=== PATIENT | female | born 1975 | race Caucasian/White ===

== ENCOUNTER 2018-04-05 07:14 | Day surgery (SDC) | payer BC, MEDICARE ==
[~2018-04-05] VITALS: Ht 170.2 cm; Wt 117.3 kg
[~2018-04-05 07:14] MED LIST: RINGERS SOLUTION,LACTATED 1,000 ML IV ONE
[2018-04-05] MEDS ORDERED: LIDOCAINE/PF 2% 5 ML VIAL IM ONE (07:15)
[2018-04-05] MEDS ORDERED: FentaNYL CITRATE-PF 100 MCG/2 ML VIAL IVP ONE (07:15)
[2018-04-05] MEDS ORDERED: ONDANSETRON HCL 4 MG/2 ML VIAL IVP ONE (07:15)
[2018-04-05] MEDS ORDERED: MIDAZOLAM HCL 2 MG/2 ML VIAL IVP ONE (07:15)
[2018-04-05] MEDS ORDERED: PROPOFOL 1% 20 ML VIAL IVP ONE (07:15)
[2018-04-05 08:03] LABS: GLUCOMETER DEV NAME(LOC) SDS 5; GLUCOSE,POINT OF CARE 147 MG/DL (70-110)
[2018-04-05] MEDS ORDERED: NORE1TAB32 PO (08:06)
[2018-04-05] MEDS ORDERED: BUPR-47 PO (08:06)
[2018-04-05] MEDS ORDERED: NORT25 PO (08:06)
[2018-04-05] MEDS ORDERED: OMEP20 PO (08:06)
[2018-04-05] MEDS ORDERED: VENL-67 PO (08:06)
[2018-04-05] MEDS ORDERED: LIDOCAINE/PF 1% 30 ML VIAL ONE (10:00)
[2018-04-05] MEDS ORDERED: BUPIVACAINE 0.25%/EPI 1:200,000/PF 10 ML VIAL ONE (10:07)
[2018-04-05] MEDS ORDERED: MEPERIDINE-PF 25 MG/ML VIAL IVP PRN (10:15)
[2018-04-05] MEDS ORDERED: FentaNYL CITRATE-PF 100 MCG/2 ML VIAL IVP PRN (10:15)
[2018-04-05] MEDS ORDERED: OXYGEN THERAPY IH SCH (20:00)
== END 2018-04-05 13:40 | disposition home or self-care (01) ==
LOC: SURGERY 07:14
PROVIDERS: ATTEND Obstetrics & Gynecology
DX: Z30.46 Encounter for surveillance of implantable subdermal contraceptive (principal); E66.9 Obesity, unspecified; F32.9 Major depressive disorder, single episode, unspecified; K21.9 Gastro-esophageal reflux disease without esophagitis; M19.90 Unspecified osteoarthritis, unspecified site; Z79.1 Long term (current) use of non-steroidal anti-inflammatories (NSAID); Z88.5 Allergy status to narcotic agent; Z68.41 Body mass index [BMI] 40.0-44.9, adult; Z88.6 Allergy status to analgesic agent; Z72.89 Other problems related to lifestyle; Z98.890 Other specified postprocedural states; Z79.899 Other long term (current) drug therapy
CPT/HCPCS: 11976; 73070; 82962; 84703; J2250; J2405; J2704; J3010; J3490 ×3; J7120

== ENCOUNTER 2022-07-08 19:41 | Inpatient (IN) | payer MEDICARE ==
[~2022-07-08] VITALS: Ht 170.2 cm; Wt 103.7 kg
[~2022-07-08 19:41] MED LIST changes: +BUPR-49 PO; +NORE1TAB32 PO; +NORT25 PO; +OMEP20 PO; -RINGERS SOLUTION,LACTATED 1,000 ML IV ONE; +VENL-67 PO
[2022-07-08] MEDS ORDERED: METF-1211 PO (19:59)
[2022-07-08] MEDS ORDERED: SITA25 PO (19:59)
[2022-07-08 20:23] LABS: BASOPHILS % (AUTO) 0.7 % (0.0-2.0); EOSINOPHILS % (AUTO) 2.5 % (1.0-6.0); HEMATOCRIT 44.5 % (36-46); HEMOGLOBIN 14.9 g/dL (12.0-16.0); LYMPHOCYTES # (AUTO) 4.1 K/uL (1.0-4.8); LYMPHOCYTES % (AUTO) 29.6 % (22.0-44.0); MEAN CORPUSCULAR HGB CONC 33.4 G/dL (31.0-37.0); MEAN CORPUSCULAR VOLUME 90 fL (80-100); MONOCYTES # (AUTO) 1.1 K/uL (0.1-1.0); MONOCYTES % (AUTO) 8.2 % (2.0-9.0); NEUTROPHILS # (AUTO) 8.2 K/uL (1.8-7.7); PLATELET COUNT (AUTO) 380 K/uL (150-450); RED BLOOD CELL COUNT(AUTO) 4.96 MIL/uL (4.00-5.20)
[2022-07-08] MEDS ORDERED: SODIUM CHLORIDE 0.9% 1,000 ML IV ONE (20:30)
[2022-07-08] MEDS ORDERED: ONDANSETRON HCL 4 MG/2 ML VIAL IVP ONE ×2 (20:30→23:45)
[2022-07-08] MEDS ORDERED: MORPHINE SULFATE 4 MG/ML SYRINGE IVP ONE (20:30)
[2022-07-08 20:32] LABS: ANION GAP 9 mmol/L (8-16); CALCIUM, TOTAL 9.1 mg/dL (8.8-10.5); CARBON DIOXIDE 28 mmol/L (22-29); CHLORIDE 101 mmol/L (98-107); CREATININE 0.78 mg/dL (0.60-1.30); GLUCOSE,RANDOM 207 mg/dL (70-110); POTASSIUM 3.8 mmol/L (3.5-5.1); SODIUM SERUM 138 mmol/L (136-145); UREA NITROGEN, BLOOD 15 mg/dL (7-18)
[2022-07-08 20:33] LABS: GLOMERULAR FILTR. RATE CALC > 60 mL/min (>60)
[2022-07-08] MEDS ORDERED: LAMO25TA25 PO (20:33)
[2022-07-08] MEDS ORDERED: HYDR-4527 PO (20:33)
[2022-07-08] MEDS ORDERED: PRAV10TA2 PO (20:33)
[2022-07-08] MEDS ORDERED: VENL-68 PO (20:33)
[2022-07-08] MEDS ORDERED: SITA100 PO (20:33)
[2022-07-08] MEDS ORDERED: NORE-227 PO (20:33)
[2022-07-08 20:36] LABS: PROTHROMBIN TIME 10.2 SEC (9.4-11.6)
[2022-07-08 20:38] LABS: ALANINE AMINOTRANSFERASE 26 U/L (12-78); ALBUMIN 3.7 g/dL (3.4-5.0); ALKALINE PHOSPHATASE 73 U/L (46-116); ASPARTATE AMINOTRANSFERASE 16 U/L (15-37); BILIRUBIN,TOTAL 0.2 mg/dL (0.1-1.0); LIPASE 149 U/L (73-393); TOTAL PROTEIN, SERUM 8.2 g/dL (6.4-8.2)
[2022-07-08] MEDS ORDERED: MORPHINE SULFATE 10 MG/ML VIAL IVP ONE (21:45)
[2022-07-09] MEDS ORDERED: IOHEXOL 350 MG/ML 100 ML VIAL ONE (01:30)
[2022-07-09] MEDS ORDERED: SODIUM CHLORIDE 0.9% 100 ML ONE (01:30)
[2022-07-09] MEDS ORDERED: ONDANSETRON HCL 4 MG/2 ML VIAL IVP ONE (02:30)
[2022-07-09] MEDS ORDERED: MORPHINE SULFATE 4 MG/ML SYRINGE IVP ONE (02:30)
[2022-07-09] MEDS ORDERED: CAPSAICIN 0.075% 60 GM CREAM TP ONE (03:45)
[2022-07-09] MEDS ORDERED: PB/HYOSCY/ATR/SCOP/LIDO/MAALOX 55 ML BOTTLE PO ONE (03:45)
[2022-07-09] MEDS ORDERED: LORazepam 2 MG/ML VIAL IVP ONE (06:00)
[2022-07-09 11:46] LABS: GLUCOSE,POINT OF CARE 218 MG/DL (70-110)
[2022-07-09 13:13] VITALS: BP 140/89
[2022-07-09 14:35] VITALS: BP 142/80
[2022-07-09] MEDS ORDERED: BISACODYL 10 MG RECTAL RECTAL SUPPOSITORY PR PRN (14:45)
[2022-07-09] MEDS ORDERED: ZOLPIDEM TARTRATE 5 MG TABLET PO PRN (14:45)
[2022-07-09] MEDS ORDERED: MAGNESIUM HYDROXIDE SUSPENSION 30 ML UDCUP PO PRN (14:45)
[2022-07-09] MEDS ORDERED: ONDANSETRON HCL 4 MG/2 ML VIAL IVP PRN (14:45)
[2022-07-09] MEDS ORDERED: DEXTROSE 50%-WATER 25 GM/50 ML SYRINGE IVP PRN (15:00)
[2022-07-09] MEDS: SODIUM CHLORIDE 0.9% 1,000 ML IV SCH (15:47)
[2022-07-09] MEDS: TraMADol HCL 50 MG TABLET PO PRN (15:48)
[2022-07-09] MEDS: METOCLOPRAMIDE HCL 5 MG/ML 2 ML VIAL IVP SCH ×2 (15:48→23:32)
[2022-07-09] MEDS: HEPARIN SODIUM,PORCINE 5,000 UNITS/ML VIAL SQ SCH ×2 (15:59→23:32)
[2022-07-09 19:27] VITALS: BP 160/94
[2022-07-09] MEDS: HydrOXYzine HCL 25 MG TABLET PO PRN (20:35)
[2022-07-09] MEDS: PRAVASTATIN SODIUM 10 MG TABLET PO SCH (20:35)
[2022-07-09] MEDS: INSULIN LISPRO 100 UNITS/ML SQ PRN (20:36)
[2022-07-09] MEDS: PANTOPRAZOLE SODIUM 40 MG/VIAL IVP SCH (20:36)
[2022-07-09] MEDS: DOCUSATE SODIUM 100 MG CAPSULE PO SCH (20:51)
[2022-07-09 23:26] VITALS: BP 150/81
[2022-07-10 03:50] VITALS: BP 156/77
[2022-07-10] MEDS: SODIUM CHLORIDE 0.9% 1,000 ML IV SCH (05:03)
[2022-07-10 06:26] LABS: BASOPHILS % (AUTO) 0.4 % (0.0-2.0); EOSINOPHILS % (AUTO) 0.1 % (1.0-6.0); HEMATOCRIT 43.3 % (36-46); HEMOGLOBIN 14.8 g/dL (12.0-16.0); LYMPHOCYTES # (AUTO) 1.4 K/uL (1.0-4.8); LYMPHOCYTES % (AUTO) 5.4 % (22.0-44.0); MEAN CORPUSCULAR HEMOGLOBIN 30.7 pg (26.0-34.0); MEAN CORPUSCULAR HGB CONC 34.2 G/dL (31.0-37.0); MEAN CORPUSCULAR VOLUME 90 fL (80-100); MONOCYTES # (AUTO) 1.7 K/uL (0.1-1.0); MONOCYTES % (AUTO) 6.4 % (2.0-9.0); NEUTROPHILS # (AUTO) 22.9 K/uL (1.8-7.7); PLATELET COUNT (AUTO) 334 K/uL (150-450); RED BLOOD CELL COUNT(AUTO) 4.82 MIL/uL (4.00-5.20); RED CELL DISTRIBUTION WIDTH 13.1 % (11.5-14.5)
[2022-07-10 06:37] LABS: CALCIUM, TOTAL 8.5 mg/dL (8.8-10.5); CREATININE 1.01 mg/dL (0.60-1.30); POTASSIUM 3.8 mmol/L (3.5-5.1)
[2022-07-10] MEDS: INSULIN LISPRO 100 UNITS/ML SQ PRN ×4 (06:52→20:25)
[2022-07-10 06:54] LABS: NEUTROPHILS % (AUTO) 87.7 % (40.0-70.0)
[2022-07-10 07:46] VITALS: BP 167/91
[2022-07-10] MEDS: VENLAFAXINE HCL 150 MG ER CAPSULE PO SCH (08:22)
[2022-07-10] MEDS: DOCUSATE SODIUM 100 MG CAPSULE PO SCH ×2 (08:23→20:19)
[2022-07-10] MEDS: HEPARIN SODIUM,PORCINE 5,000 UNITS/ML VIAL SQ SCH ×2 (08:23→16:42)
[2022-07-10] MEDS: METOCLOPRAMIDE HCL 5 MG/ML 2 ML VIAL IVP SCH ×2 (08:23→16:41)
[2022-07-10] MEDS: PANTOPRAZOLE SODIUM 40 MG/VIAL IVP SCH ×2 (08:23→23:50)
[2022-07-10] MEDS ORDERED: PANTOPRAZOLE SODIUM 40 MG DR TABLET PO SCH (09:00)
[2022-07-10] MEDS: TraMADol HCL 50 MG TABLET PO PRN ×2 (09:14→16:42)
[2022-07-10 11:45] VITALS: BP 156/87
[2022-07-10 12:46] LABS: AMPHET/METH SCREEN,URINE NEGATIVE (NEGATIVE); BARBITURATE SCREEN, URINE NEGATIVE (NEGATIVE); BENZODIAZEPINES SCREEN,URINE NEGATIVE (NEGATIVE); CANNABINOID SCREEN,URINE POSITIVE (NEGATIVE); COCAINE SCREEN,URINE NEGATIVE (NEGATIVE); METHADONE SCREEN, URINE NEGATIVE (NEGATIVE); OPIATE SCREEN,URINE POSITIVE (NEGATIVE); PHENCYCLIDINE SCREEN,URINE NEGATIVE (NEGATIVE)
[2022-07-10 15:30] VITALS: BP 159/89
[2022-07-10 15:31] LABS: GLUCOMETER DEV NAME(LOC) 5S.2B; GLUCOSE,POINT OF CARE 229 MG/DL (70-110)
[2022-07-10 15:31] LABS: GLUCOMETER DEV NAME(LOC) 5S.2B; GLUCOSE,POINT OF CARE 241 MG/DL (70-110)
[2022-07-10 15:32] LABS: GLUCOMETER DEV NAME(LOC) 5S.2B; GLUCOSE,POINT OF CARE 215 MG/DL (70-110)
[2022-07-10 20:00] VITALS: BP 165/80
[2022-07-10] MEDS: PRAVASTATIN SODIUM 10 MG TABLET PO SCH (20:19)
[2022-07-10 20:26] LABS: GLUCOMETER DEV NAME(LOC) 5S.1B; GLUCOSE,POINT OF CARE 295 MG/DL (70-110)
[2022-07-11] MEDS: HEPARIN SODIUM,PORCINE 5,000 UNITS/ML VIAL SQ SCH ×4 (00:06→23:43)
[2022-07-11] MEDS: METOCLOPRAMIDE HCL 5 MG/ML 2 ML VIAL IVP SCH ×4 (00:06→23:45)
[2022-07-11 00:33] VITALS: BP 158/89
[2022-07-11 04:45] VITALS: BP 155/81
[2022-07-11] MEDS: TraMADol HCL 50 MG TABLET PO PRN (05:08)
[2022-07-11 06:11] LABS: BASOPHILS % (AUTO) 0.1 % (0.0-2.0); EOSINOPHILS % (AUTO) 0.6 % (1.0-6.0); HEMATOCRIT 39.7 % (36-46); HEMOGLOBIN 13.7 g/dL (12.0-16.0); LYMPHOCYTES # (AUTO) 1.7 K/uL (1.0-4.8); LYMPHOCYTES % (AUTO) 8.4 % (22.0-44.0); MEAN CORPUSCULAR HEMOGLOBIN 30.9 pg (26.0-34.0); MEAN CORPUSCULAR HGB CONC 34.7 G/dL (31.0-37.0); MEAN CORPUSCULAR VOLUME 89 fL (80-100); MONOCYTES # (AUTO) 1.3 K/uL (0.1-1.0); MONOCYTES % (AUTO) 6.6 % (2.0-9.0); NEUTROPHILS # (AUTO) 16.8 K/uL (1.8-7.7); NEUTROPHILS % (AUTO) 84.3 % (40.0-70.0); PLATELET COUNT (AUTO) 323 K/uL (150-450); RED BLOOD CELL COUNT(AUTO) 4.45 MIL/uL (4.00-5.20); RED CELL DISTRIBUTION WIDTH 12.9 % (11.5-14.5)
[2022-07-11 06:26] LABS: ANION GAP 8 mmol/L (8-16); CALCIUM, TOTAL 8.3 mg/dL (8.8-10.5); CARBON DIOXIDE 28 mmol/L (22-29); CHLORIDE 97 mmol/L (98-107); GLOMERULAR FILTR. RATE CALC > 60 mL/min (>60); GLUCOSE,RANDOM 250 mg/dL (70-110); POTASSIUM 3.2 mmol/L (3.5-5.1); SODIUM SERUM 133 mmol/L (136-145); UREA NITROGEN, BLOOD 6 mg/dL (7-18)
[2022-07-11] MEDS: INSULIN LISPRO 100 UNITS/ML SQ PRN ×4 (06:53→20:19)
[2022-07-11] MEDS ORDERED: POTASSIUM CHLORIDE 20 MEQ ER TABLET PO PRN ×2 (07:30)
[2022-07-11] MEDS ORDERED: POTASSIUM CHLORIDE 10% 40 MEQ/30 ML LIQUID UDCUP PO PRN ×2 (07:30)
[2022-07-11] MEDS ORDERED: POTASSIUM CHL 10 MEQ/WATER 50 ML IV PRN ×4 (07:30)
[2022-07-11 07:40] VITALS: BP 150/80
[2022-07-11] MEDS: DOCUSATE SODIUM 100 MG CAPSULE PO SCH ×2 (08:00→20:17)
[2022-07-11] MEDS: PANTOPRAZOLE SODIUM 40 MG/VIAL IVP SCH ×2 (08:01→20:17)
[2022-07-11] MEDS: VENLAFAXINE HCL 150 MG ER CAPSULE PO SCH (08:01)
[2022-07-11 08:56] LABS: GLUCOMETER DEV NAME(LOC) 5S.2B; GLUCOSE,POINT OF CARE 234 MG/DL (70-110)
[2022-07-11] MEDS: SODIUM CHLORIDE 0.9% 1,000 ML IV SCH ×2 (09:39→23:43)
[2022-07-11 11:01] VITALS: BP 148/70
[2022-07-11 16:13] VITALS: BP 160/83
[2022-07-11] MEDS ORDERED: ACETAMINOPHEN 325 MG TABLET PO PRN (19:30)
[2022-07-11 19:37] LABS: GLUCOMETER DEV NAME(LOC) 5S.1B; GLUCOSE,POINT OF CARE 276 MG/DL (70-110)
[2022-07-11] MEDS: PRAVASTATIN SODIUM 10 MG TABLET PO SCH (20:18)
[2022-07-11 20:20] VITALS: BP 151/90
[2022-07-11] MEDS: HydrOXYzine HCL 25 MG TABLET PO PRN (21:24)
[2022-07-11 23:01] LABS: GLUCOMETER DEV NAME(LOC) 5S.2B; GLUCOSE,POINT OF CARE 289 MG/DL (70-110)
[2022-07-11 23:01] LABS: GLUCOMETER DEV NAME(LOC) 5S.2B; GLUCOSE,POINT OF CARE 273 MG/DL (70-110)
[2022-07-12] VITALS: BP 150/85
[2022-07-12 04:41] VITALS: BP 163/89
[2022-07-12] MEDS: INSULIN LISPRO 100 UNITS/ML SQ PRN ×2 (05:56→12:05)
[2022-07-12 07:40] VITALS: BP 156/67
[2022-07-12 08:00] LABS: BASOPHILS % (AUTO) 0.7 % (0.0-2.0); EOSINOPHILS % (AUTO) 2.7 % (1.0-6.0); HEMATOCRIT 39.9 % (36-46); HEMOGLOBIN 13.5 g/dL (12.0-16.0); LYMPHOCYTES # (AUTO) 2.1 K/uL (1.0-4.8); LYMPHOCYTES % (AUTO) 15.8 % (22.0-44.0); MEAN CORPUSCULAR HGB CONC 33.7 G/dL (31.0-37.0); MEAN CORPUSCULAR VOLUME 89 fL (80-100); MONOCYTES % (AUTO) 7.8 % (2.0-9.0); NEUTROPHILS # (AUTO) 9.5 K/uL (1.8-7.7); PLATELET COUNT (AUTO) 328 K/uL (150-450); RED BLOOD CELL COUNT(AUTO) 4.48 MIL/uL (4.00-5.20); RED CELL DISTRIBUTION WIDTH 12.9 % (11.5-14.5)
[2022-07-12 08:07] LABS: ANION GAP 9 mmol/L (8-16); CALCIUM, TOTAL 8.8 mg/dL (8.8-10.5); CARBON DIOXIDE 27 mmol/L (22-29); CHLORIDE 97 mmol/L (98-107); CREATININE 0.79 mg/dL (0.60-1.30); GLOMERULAR FILTR. RATE CALC > 60 mL/min (>60); GLUCOSE,RANDOM 249 mg/dL (70-110); POTASSIUM 3.6 mmol/L (3.5-5.1); SODIUM SERUM 133 mmol/L (136-145); UREA NITROGEN, BLOOD 8 mg/dL (7-18)
[2022-07-12] MEDS: PANTOPRAZOLE SODIUM 40 MG/VIAL IVP SCH (08:31)
[2022-07-12] MEDS: DOCUSATE SODIUM 100 MG CAPSULE PO SCH (08:32)
[2022-07-12] MEDS: METOCLOPRAMIDE HCL 5 MG/ML 2 ML VIAL IVP SCH (08:33)
[2022-07-12] MEDS: VENLAFAXINE HCL 150 MG ER CAPSULE PO SCH (08:33)
[2022-07-12] MEDS: HEPARIN SODIUM,PORCINE 5,000 UNITS/ML VIAL SQ SCH (08:34)
[2022-07-12] MEDS: TraMADol HCL 50 MG TABLET PO PRN (08:36)
[2022-07-12] MEDS ORDERED: METO5TAB95 PO (09:53)
[2022-07-12] MEDS ORDERED: AMLO-257 PO (09:53)
[2022-07-12] MEDS ORDERED: ONDA-104 PO (09:53)
[2022-07-12] MEDS ORDERED: AmLODIPine BESYLATE 5 MG TABLET PO SCH (10:00)
[2022-07-12 11:59] VITALS: BP 145/73
[2022-07-12 17:21] LABS: GLUCOMETER DEV NAME(LOC) 5S.1B; GLUCOSE,POINT OF CARE 301 MG/DL (70-110)
[2022-07-12 17:21] LABS: GLUCOMETER DEV NAME(LOC) 5S.1B; GLUCOSE,POINT OF CARE 300 MG/DL (70-110)
== END 2022-07-12 14:35 | disposition home or self-care (01) | DRG 74 ==
LOC: EMS 19:43 → 5S 07-09 11:20
PROVIDERS: ADMIT Internal Medicine; ATTEND Internal Medicine
DX: E11.43 Type 2 diabetes mellitus with diabetic autonomic (poly)neuropathy (principal); R65.10 Systemic inflammatory response syndrome (SIRS) of non-infectious origin without acute organ dysfunction; E66.01 Morbid (severe) obesity due to excess calories; Z68.35 Body mass index [BMI] 35.0-35.9, adult; F99 Mental disorder, not otherwise specified; R03.0 Elevated blood-pressure reading, without diagnosis of hypertension; R11.2 Nausea with vomiting, unspecified; D72.829 Elevated white blood cell count, unspecified; E11.65 Type 2 diabetes mellitus with hyperglycemia; E78.5 Hyperlipidemia, unspecified; F12.90 Cannabis use, unspecified, uncomplicated; K31.84 Gastroparesis; K82.8 Other specified diseases of gallbladder; Z88.5 Allergy status to narcotic agent; Z79.899 Other long term (current) drug therapy; Z88.6 Allergy status to analgesic agent
CPT/HCPCS: 70450; 74177; 76705; 80048; 80053; 80307; 82962; 83690; 83735; 84132; 85025; 85610; 85730; 93005; 99285; C9113; J1644; J2060; J2270; J2405; J2765; J7030; J7050; Q9967